=== PATIENT | male | born 1995 | race Two or more races ===

== ENCOUNTER 2021-07-13 12:05 | Emergency (ER) | payer OTHER ==
[~2021-07-13] VITALS: Ht 180.3 cm; Wt 104.3 kg
[2021-07-13] MEDS ORDERED: ADDERALL 5 MG TA5 MG PO (12:24)
[2021-07-13] MEDS ORDERED: AMOX-CLAV 875-1 EAC1 PO (16:44)
[2021-07-13] MEDS ORDERED: INTESTINEX680 M1 PO (16:44)
[2021-07-13] MEDS ORDERED: PEPCID AC20 MG PO (16:44)
[2021-07-13] MEDS ORDERED: KETO10TA2 PO (16:44)
== END 2021-07-13 17:07 ==
LOC: ER 12:05
DX: J03.90 Acute tonsillitis, unspecified (principal); Z03.818 Encounter for observation for suspected exposure to other biological agents ruled out